=== PATIENT | male | born 1995 | race African-American/Black ===

== ENCOUNTER 2016-12-12 14:54 | Emergency (ER) | payer MEDICAID, OTHER ==
[~2016-12-12] VITALS: Ht 177.8 cm; Wt 64.4 kg
[2016-12-12] MEDS ORDERED: ADV500INH INH (15:12)
[2016-12-12] MEDS ORDERED: ALBU83IN INH (15:12)
[2016-12-12] MEDS ORDERED: ALLE25CA8 PO (15:12)
[2016-12-12] MEDS ORDERED: MUCI600T34 PO (15:13)
[2016-12-12] MEDS ORDERED: KETOROLAC 30 MG/ML VIAL (J1885) IV ONE (16:00)
[2016-12-12] MEDS ORDERED: NS 1,000 ML IV ONE (16:00)
[2016-12-12] MEDS ORDERED: ONDANSETRON 4MG/2ML VIAL (J2405) IV ONE (16:00)
[2016-12-12 16:48] LABS: BASO % 0.2 % (0.0-1.0); EOS % 0.6 % (0.0-3.0); LARGE UNSTAINED CELL # 0.1 K/mm3 (0.0-0.4); LARGE UNSTAINED CELL % 1.2 % (0.0-4.0); LYMPH # 0.3 K/mm3 (1.5-6.5); LYMPH % 5.4 % (24.0-44.0); MEAN CORPUSCULAR HEMOGLOBIN 30.3 pg (27.0-33.0); MEAN CORPUSCULAR HGB CONC 33.3 g/dl (32.0-36.5); MEAN CORPUSCULAR VOLUME 90.9 fl (80.0-96.0); MONO # 0.5 K/mm3 (0.0-0.8); MONO % 7.8 % (0.0-5.0); NEUTROPHILS # 5.3 K/mm3 (1.8-7.7); NEUTROPHILS % 84.8 % (36.0-66.0); PLATELET COUNT, AUTOMATED 183 k/mm3 (150-450); RED CELL DISTRIBUTION WIDTH 11.4 % (11.5-14.5); WHITE BLOOD COUNT 6.3 K/mm3 (4.0-10.0)
[2016-12-12 17:08] LABS: ALBUMIN 4.3 GM/DL (3.2-5.2); ALBUMIN/GLOBULIN RATIO 1.26 (1.00-1.93); ALKALINE PHOSPHATASE 57 U/L (45-117); ALT/SGPT 24 U/L (12-78); ANION GAP 9 MEQ/L (8-16); AST/SGOT 14 U/L (15-37); BILIRUBIN,DIRECT 0.1 MG/DL (0.0-0.2); BILIRUBIN,TOTAL 0.6 MG/DL (0.2-1.0); BLOOD UREA NITROGEN 12 MG/DL (7-18); CALCIUM LEVEL 8.9 MG/DL (8.5-10.1); CARBON DIOXIDE LEVEL 28 MEQ/L (21-32); CHLORIDE LEVEL 101 MEQ/L (98-107); CREATININE FOR GFR 1.14 MG/DL (0.70-1.30); GLOMERULAR FILTRATION RATE > 60.0 (>60); GLUCOSE, FASTING 84 MG/DL (70-105); POTASSIUM SERUM 3.4 MEQ/L (3.5-5.1); SODIUM LEVEL 138 MEQ/L (136-145); TOTAL PROTEIN 7.7 GM/DL (6.4-8.2)
[2016-12-12] MEDS ORDERED: ISOVUE-370 76% 100ML VIAL (Q9967) As Ordered ONE (17:19)
[2016-12-12] MEDS ORDERED: ZOFR4TAB3 PO (17:41)
--- NOTE | 2016-12-12 17:46 | REP ---
Clinical: Right sided pain. Technique: Axial contrast enhanced images from the lung bases to the pubic symphysis using 100 ml Isovue 370 intravenous contrast material with coronal and sagittal re-formations. Findings: Examination is significantly limited by the lack of intraluminal contrast and paucity of intra peritoneal fat. Lung bases clear. Visualized heart and pericardium normal. Liver, spleen, pancreas, gallbladder, bilateral adrenal glands and kidneys are normal. No evidence for bowel obstruction or obvious acute inflammatory process. Portions of the appendix are suggested in the right lower quadrant and appear normal and there is no secondary evidence to suggest acute appendicitis. Pelvis demonstrates normal bladder and age appropriate prostate/seminal vesicles. No ascites. No free air. No obvious adenopathy. Vasculature normal. Musculoskeletal structures are intact. Impression: Normal CT of the abdomen and pelvis. Signed by Rod Jimenez MD 12/12/2016 05:37 P
[2016-12-12 17:47] VITALS: BP 132/66
== END 2016-12-12 17:47 | disposition home or self-care (01) ==
LOC: M ED 15:54
DX: R11.2 Nausea with vomiting, unspecified (principal); R10.31 Right lower quadrant pain; J45.909 Unspecified asthma, uncomplicated; Z87.891 Personal history of nicotine dependence; Z79.51 Long term (current) use of inhaled steroids

== ENCOUNTER 2017-02-14 20:46 | Emergency (ER) | payer OTHER ==
[~2017-02-14] VITALS: Ht 177.8 cm; Wt 61.7 kg
[~2017-02-14 20:46] MED LIST: ADV500INH INH; ALBU83IN INH; ALLE25CA8 PO; MUCI600T34 PO; ZOFR4TAB3 PO
[2017-02-14] MEDS ORDERED: COLD MEDICINE PO (20:57)
[2017-02-14] MEDS ORDERED: ALBU17IN2 INH (20:57)
[2017-02-14] MEDS ORDERED: NS 1,000 ML IV ONE (21:15)
[2017-02-14] MEDS ORDERED: MAG SULF 1GM/100ML (MAG RUN) 1 GM in APPROPRIATE DILUENT 1 EA IV ONE (21:15)
[2017-02-14] MEDS ORDERED: methylPREDNISolone INJ 125 MG/2 ML VIAL (J2930) IV ONE (21:15)
[2017-02-14] MEDS: IPRATROPIUM 0.5MG/ALBUTEROL 2.5MG INH SOL UD 3ML (DUONEB)(J7620) NEB PRN ×2 (21:45→22:11)
--- NOTE | 2017-02-14 22:03 | REP ---
Clinical: Dyspnea and cough . Comparison: 06/20/2015 . Technique: PA and lateral. Findings: The mediastinum and cardiac silhouette are normal. The lung [place] are clear and without acute consolidation, effusion, or pneumothorax. The skeletal structures are intact and normal. Impression: 1. No acute cardiopulmonary process. Signed by Rod Jimenez MD 02/14/2017 09:54 P
[2017-02-15 00:08] VITALS: O2SAT 93
[2017-02-15] MEDS ORDERED: MUCI600T34 PO (00:34)
[2017-02-15] MEDS ORDERED: PRED20TA PO (00:34)
[2017-02-15] MEDS ORDERED: ALBU83IN INH (00:34)
[2017-02-15 00:50] VITALS: BP 141/86
== END 2017-02-15 01:12 | disposition home or self-care (01) ==
LOC: M ED 21:13
DX: J45.41 Moderate persistent asthma with (acute) exacerbation (principal); R00.0 Tachycardia, unspecified; F17.210 Nicotine dependence, cigarettes, uncomplicated; Z79.899 Other long term (current) drug therapy; Z79.51 Long term (current) use of inhaled steroids

== ENCOUNTER 2017-10-02 18:29 | Emergency (ER) | payer OTHER ==
[2017-10-02] MEDS: IPRATROPIUM 0.5MG/ALBUTEROL 2.5MG INH SOL UD 3ML (DUONEB)(J7620) NEB (20:36)
== END 2017-10-02 21:47 | disposition home or self-care (01) ==
LOC: M ED 18:29
DX: B34.9 Viral infection, unspecified (principal); J06.9 Acute upper respiratory infection, unspecified; J45.901 Unspecified asthma with (acute) exacerbation; F17.210 Nicotine dependence, cigarettes, uncomplicated; Z79.51 Long term (current) use of inhaled steroids; Z79.899 Other long term (current) drug therapy
CPT/HCPCS: 94640